=== PATIENT | female | born 2000 | race Hispanic/Latino ===

== ENCOUNTER 2022-04-02 12:59 | Outpatient (CLI) | payer OTHER | END 2022-04-02 13:00 | disposition home or self-care (01) | LOC: CSHLAB 12:59 | PROVIDERS: ATTEND Family Medicine | DX: Z20.822 Contact with and (suspected) exposure to COVID-19 (principal) | CPT/HCPCS: 87811 ==

== ENCOUNTER 2022-04-04 05:35 | Inpatient (IN) | payer OTHER ==
[2022-04-04] MEDS ORDERED: Promethazine HCl 25 MG/ML VIAL IM PRN ×2 (05:58→07:16)
[2022-04-04] MEDS ORDERED: Bicitra 30 ML UDCUP PO PRN (05:58)
[2022-04-04] MEDS ORDERED: Ondansetron PF 4 MG/2 ML Vial IVP PRN ×3 (05:58→11:31)
[2022-04-04] MEDS ORDERED: hydrALAZINE 20 MG/ML VIAL SLOW IVP PRN ×2 (05:58→11:31)
[2022-04-04] MEDS ORDERED: Famotidine/PF 20 mg/2ml Vial SLOW IVP PRN (05:58)
[2022-04-04] MEDS ORDERED: CEFAZOLIN 2 GM in Sodium Chloride 0.9% 100 ML IVPB SCH (06:00)
[2022-04-04] MEDS ORDERED: Lactated Ringer's 1,000 ML IV SCH (06:00)
[2022-04-04] MEDS ORDERED: Fentanyl 2 mcg/Bup 0.1% Cadd 100 ML ONE (06:11)
[2022-04-04 07:06] LABS: Hemoglobin 10.6 g/dL (12.0-15.5); Mean Corpuscular Hemoglobin 29.7 pg (27.0-33.0); Mean Corpuscular Volume 89.9 fl (81.6-98.3); Mean Platelet Volume 11.8 fl (7.4-10.4); Platelet Count 242 10x3/uL (150-450); RBC Distribution Width 13.3 % (11.5-14.5); Red Blood Cell (RBC) Count 3.57 10x6/uL (3.90-5.03); White Blood Cell (WBC) Count 9.2 10x3/uL (3.5-10.5)
[2022-04-04] MEDS ORDERED: Morphine PF 10 MG/10 ML VIAL ONE (07:08)
[2022-04-04] MEDS ORDERED: ePHEDrine Sulfate 50 MG/10 ML VIAL ONE (07:08)
[2022-04-04] MEDS ORDERED: PHENYLEPHRINE-NS 100 MCG/ML 10 ML SYRINGE ONE (07:09)
[2022-04-04] MEDS ORDERED: Ondansetron PF 4 MG/2 ML Vial ONE ×2 (07:09→08:09)
[2022-04-04] MEDS ORDERED: Ketorolac Tromethamine 30 MG/ML VIAL ONE (07:09)
[2022-04-04] MEDS ORDERED: Oxytocin 10 UNITS/ML VIAL ONE (07:09)
[2022-04-04] MEDS ORDERED: Glycopyrrolate 0.2 MG/ML 5 ML SYRINGE ONE (07:09)
[2022-04-04] MEDS ORDERED: Dexamethasone 4 mg/ml Vial ONE (07:09)
[2022-04-04] MEDS ORDERED: Phenylephrine 40 MG/NS 250 ML 250 ML ONE (07:09)
[2022-04-04] MEDS ORDERED: Moisturizing Cream (Eucerin) 113 GM JAR TOP PRN (07:16)
[2022-04-04] MEDS ORDERED: Fentanyl 100 MCG/2 ML VIAL SLOW IVP PRN (07:16)
[2022-04-04] MEDS ORDERED: Naloxone HCl 0.4 mg/ml Vial IVP PRN ×2 (07:16)
[2022-04-04] MEDS ORDERED: Ondansetron HCl/PF 4 MG/2 ML Vial IVP PRN (07:16)
[2022-04-04] MEDS ORDERED: Meperidine HCl/PF 25 MG/ML VIAL SLOW IVP PRN (07:16)
[2022-04-04] MEDS ORDERED: Promethazine HCl 25 MG SUPP PR PRN (07:16)
[2022-04-04] MEDS ORDERED: Naloxone HCl 0.4 mg/ml Vial IV PRN (07:16)
[2022-04-04] MEDS ORDERED: Ketorolac Tromethamine 30 MG/ML VIAL IVP SCH (07:30)
[2022-04-04] MEDS ORDERED: Communication Order-Pharmacy FS SCH (07:30)
[2022-04-04 07:32] LABS: Syphilis Antibody Nonreactive (Nonreactive); Syphilis Antibody Index 0.04 S/CO (<1.00 Non-Reactive)
[2022-04-04 07:34] LABS: Hep B Surf Ag Non-Reactive S/CO (NonReactive)
[2022-04-04 07:36] LABS: HBSAg Index 0.21 S/CO (0-0.99)
[2022-04-04] MEDS ORDERED: Midazolam HCl 2 mg/2 ml Vial ONE (08:21)
[2022-04-04 09:05] VITALS: BMI 53.5
[2022-04-04] MEDS: diphenhydrAMINE 50 MG/ML VIAL IVP PRN ×2 (10:44→21:14)
[2022-04-04] MEDS ORDERED: Meperidine HCl/PF 25 MG/ML VIAL ONE (10:46)
[2022-04-04] MEDS ORDERED: Misoprostol 200 MCG TAB PR PRN (11:31)
[2022-04-04] MEDS ORDERED: Simethicone Chewable 80 MG TAB PO PRN (11:31)
[2022-04-04] MEDS ORDERED: Boostrix 0.5 ML (Tdap) VIAL IM ONE (11:31)
[2022-04-04] MEDS ORDERED: NS w/ Oxytocin 30 units 500 ML IV SCH (11:31)
[2022-04-04] MEDS ORDERED: Lanolin Ointment 7 GM TUBE TOP PRN (11:31)
[2022-04-04] MEDS ORDERED: diphenhydrAMINE 25 MG CAP PO PRN (11:31)
[2022-04-04] MEDS: Ketorolac Tromethamine 30 MG/ML VIAL IVP PRN (16:19)
[2022-04-04] MEDS: Ferrous Sulfate 325 MG TAB PO SCH (21:13)
[2022-04-04] MEDS: Docusate 100 MG CAP PO SCH (21:13)
[2022-04-05] MEDS: Ketorolac Tromethamine 30 MG/ML VIAL IVP PRN ×2 (00:10→06:06)
[2022-04-05 05:48] LABS: Hemoglobin 8.1 g/dL (12.0-15.5); Mean Corpuscular HGB CONC 33.3 g/dL (32.0-36.0); Mean Corpuscular Hemoglobin 29.6 pg (27.0-33.0); Mean Corpuscular Volume 88.7 fl (81.6-98.3); Mean Platelet Volume 11.8 fl (7.4-10.4); Platelet Count 193 10x3/uL (150-450); RBC Distribution Width 13.5 % (11.5-14.5); Red Blood Cell (RBC) Count 2.74 10x6/uL (3.90-5.03); White Blood Cell (WBC) Count 9.2 10x3/uL (3.5-10.5)
[2022-04-05] MEDS: Ferrous Sulfate 325 MG TAB PO SCH ×2 (08:33→21:12)
[2022-04-05] MEDS: Prenatal Vitamin 1 TAB PO SCH (08:33)
[2022-04-05] MEDS: Docusate 100 MG CAP PO SCH ×2 (08:33→21:12)
[2022-04-05] MEDS: HYDROcodone/Acetaminophen 5/325 mg Tablet PO PRN ×2 (08:34→16:50)
[2022-04-05] MEDS: Ibuprofen 800 MG TAB PO SCH ×2 (12:11→21:12)
[2022-04-06] MEDS: HYDROcodone/Acetaminophen 5/325 mg Tablet PO PRN ×2 (04:34→11:50)
[2022-04-06] MEDS: Ibuprofen 800 MG TAB PO SCH ×2 (06:09→14:49)
[2022-04-06 07:42] VITALS: BP 117/68; TEMP 98.9
[2022-04-06] MEDS: Docusate 100 MG CAP PO SCH (07:58)
[2022-04-06] MEDS: Ferrous Sulfate 325 MG TAB PO SCH (07:58)
[2022-04-06] MEDS: Prenatal Vitamin 1 TAB PO SCH (07:58)
== END 2022-04-06 15:25 | disposition home or self-care (01) | DRG 787 ==
LOC: CSHLD 05:35 → CSHPED 11:15
PROVIDERS: ADMIT Family Medicine; ATTEND Family Medicine
PROC: 10D00Z1 Extraction of Products of Conception, Low, Open Approach (ICD-10-PCS; principal; 2022-04-04)
DX: O34.211 Maternal care for low transverse scar from previous cesarean delivery (principal); O10.92 Unspecified pre-existing hypertension complicating childbirth; Z20.822 Contact with and (suspected) exposure to COVID-19; Z3A.38 38 weeks gestation of pregnancy; Z37.0 Single live birth; D64.9 Anemia, unspecified; O99.02 Anemia complicating childbirth; O24.429 Gestational diabetes mellitus in childbirth, unspecified control; Z91.19 Patient's noncompliance with other medical treatment and regimen; Z79.899 Other long term (current) drug therapy
CPT/HCPCS: 36415; 36416; 51702; 83036; 85027; 86780; 86850; 86900; 86901; 87340; J0690; J1100; J1200; J1885; J2175; J2250; J2274; J2405; J2590; J3490; S0028

== ENCOUNTER 2022-12-22 16:41 | Emergency (ER) | payer OTHER ==
[2022-12-22 17:37] LABS: Bilirubin Neg (Negative); Blood, Urine Negative (Negative); Clarity Cloudy (Clear); Glucose, Urine (Dipstick) Normal (Negative); Ketone, Urine Negative (Negative); Leukocyte 25 (Negative); Nitrite Negative (Negative); Protein, Urine (Dipstick) Negative (Neg-Trace); Specific Gravity, Urine 1.015 (1.005-1.030); Urobilinogen Normal mg/dL (Less than 2)
[2022-12-22 17:47] LABS: #Eosinphils 0.2 10x3/uL (0.0-0.5); #Monocytes 0.7 10x3/uL (0.0-1.1); #Neutrophils 7.7 10x3/uL (1.5-8.4); %Basophils 0.3 % (0.0-2.0); %Eosinophils 1.5 % (0.0-6.0); %Lymphocytes 18.6 % (18.0-47.0); %Monocytes 6.6 % (0.0-10.0); %Neutrophils 72.6 % (40.0-75.0); Hemoglobin 11.9 g/dL (12.0-15.5); Mean Corpuscular HGB CONC 33.7 g/dL (32.0-36.0); Mean Corpuscular Hemoglobin 31.6 pg (27.0-33.0); Mean Corpuscular Volume 93.6 fl (81.6-98.3); Mean Platelet Volume 11.7 fl (7.4-10.4); Platelet Count 242 10x3/uL (150-450); RBC Distribution Width 13.1 % (11.5-14.5); Red Blood Cell (RBC) Count 3.77 10x6/uL (3.90-5.03); White Blood Cell (WBC) Count 10.6 10x3/uL (3.5-10.5)
[2022-12-22 18:00] LABS: ALT (SGPT) 9 U/L (8-55); AST (SGOT) 13 U/L (5-34); Albumin 3.6 g/dL (3.5-5.0); Alkaline Phosphatase 56 U/L (40-110); Anion Gap 14 mmol/L (10-20); BUN (Urea Nitrogen) 4 mg/dL (7.0-18.7); Bilirubin, Total 0.1 mg/dL (0.2-1.2); Calc. Creatinine Clearance 0 mL/min (70-130); Carbon Dioxide 19 mmol/L (22-29); Chloride 108 mmol/L (98-107); Estimated GFR 130; Globulin 3.6 g/dL (2.4-3.5); Glucose 99 mg/dL (70-105); Potassium 3.5 mmol/L (3.5-5.1); Protein, Total 7.2 g/dL (6.0-8.3); Sodium 137 mmol/L (136-145)
[2022-12-22 18:04] LABS: Bacteria/HPF 2+ HPF (None Seen); RBC/HPF None Seen HPF (0-3); WBC/HPF 0-3 HPF (0-3)
== END 2022-12-22 19:31 | disposition home or self-care (01) ==
LOC: CSHERS 16:41
DX: O99.891 Other specified diseases and conditions complicating pregnancy (principal); R10.32 Left lower quadrant pain; O21.9 Vomiting of pregnancy, unspecified; Z3A.18 18 weeks gestation of pregnancy
CPT/HCPCS: 76815; 80053; 81003; 81015; 84702; 85025

== ENCOUNTER 2023-04-14 12:03 | Day surgery (SDC) | payer OTHER ==
[2023-04-14] MEDS ORDERED: hydrALAZINE 20 MG/ML VIAL SLOW IVP PRN (13:08)
[2023-04-14 13:12] VITALS: BMI 36.9
[2023-04-14] MEDS ORDERED: Acetaminophen 325 MG TAB PO SCH (13:45)
[2023-04-14 14:33] LABS: #Monocytes 0.6 10x3/uL (0.0-1.1); %Basophils 0.4 % (0.0-2.0); %Eosinophils 0.5 % (0.0-6.0); %Lymphocytes 21.2 % (18.0-47.0); %Monocytes 7.4 % (0.0-10.0); %Neutrophils 70.1 % (40.0-75.0); Hemoglobin 10.8 g/dL (12.0-15.5); Mean Corpuscular Hemoglobin 29.4 pg (27.0-33.0); Mean Corpuscular Volume 89.1 fl (81.6-98.3); Platelet Count 244 10x3/uL (150-450); RBC Distribution Width 12.3 % (11.5-14.5); Red Blood Cell (RBC) Count 3.67 10x6/uL (3.90-5.03); White Blood Cell (WBC) Count 8.6 10x3/uL (3.5-10.5)
[2023-04-14 14:48] LABS: Amphetamine Not Detected (NotDetected); Barbiturates Screen Not Detected (NotDetected); Benzodiazepine Screen Not Detected (NotDetected); Cocaine Metabolite Screen Not Detected (NotDetected); Methadone Not Detected (NotDetected); Methamphetamine Not Detected (NotDetected); Opiate Screen Not Detected (NotDetected); Oxycodone Screen Not Detected (NotDetected); Phencyclidine (PCP) Not Detected (NotDetected); THC/Cannabinoid Screen Not Detected (NotDetected); Tricyclic Screen Not Detected (NotDetected)
[2023-04-14 14:49] LABS: ALT (SGPT) 15 U/L (8-55); AST (SGOT) 18 U/L (5-34); Albumin 3.2 g/dL (3.5-5.0); Alkaline Phosphatase 177 U/L (40-110); Anion Gap 14 mmol/L (10-20); BUN (Urea Nitrogen) 4 mg/dL (7.0-18.7); Bilirubin, Total 0.3 mg/dL (0.2-1.2); Calc. Creatinine Clearance 207 mL/min (70-130); Calcium 8.8 mg/dL (7.8-10.44); Carbon Dioxide 18 mmol/L (22-29); Chloride 108 mmol/L (98-107); Estimated GFR 131; Globulin 3.5 g/dL (2.4-3.5); Glucose 83 mg/dL (70-105); Potassium 3.5 mmol/L (3.5-5.1); Protein, Total 6.7 g/dL (6.0-8.3); Sodium 136 mmol/L (136-145)
[2023-04-14 15:01] LABS: Creatinine, Urine 195.48 mg/dL (47-110)
[2023-04-14 20:45] LABS: Hemoglobin A1c 5.7 % (4.0-6.0)
[2023-04-14 21:39] LABS: Uric Acid 6.2 mg/dL (2.6-6.0)
[2023-04-15 19:59] LABS: Group B Streptococcus by PCR Not Detected (NotDetected)
== END 2023-04-14 18:15 | disposition home or self-care (01) ==
LOC: CSHLD/OP 12:03
PROVIDERS: ATTEND Obstetrics & Gynecology
DX: O99.891 Other specified diseases and conditions complicating pregnancy (principal); R51.9 Headache, unspecified; H52.532 Spasm of accommodation, left eye; O13.4 Gestational [pregnancy-induced] hypertension without significant proteinuria, complicating childbirth; O99.213 Obesity complicating pregnancy, third trimester; E66.9 Obesity, unspecified; O24.410 Gestational diabetes mellitus in pregnancy, diet controlled; O98.819 Other maternal infectious and parasitic diseases complicating pregnancy, unspecified trimester; B95.1 Streptococcus, group B, as the cause of diseases classified elsewhere; Z3A.35 35 weeks gestation of pregnancy; Z79.899 Other long term (current) drug therapy
CPT/HCPCS: 76815; 80053; 80306; 82570; 83036; 84156; 84443; 84550; 85025; 87653; 99284

== ENCOUNTER 2023-04-23 06:28 | Inpatient (IN) | payer OTHER ==
[2023-04-23] MEDS ORDERED: Tranexamic Acid 1,000 MG/10 ML VIAL IVP PRN (06:44)
[2023-04-23] MEDS ORDERED: hydrALAZINE 20 MG/ML VIAL SLOW IVP PRN ×2 (06:44→12:08)
[2023-04-23] MEDS ORDERED: Acetaminophen 500 MG TAB PO PRN (06:44)
[2023-04-23] MEDS ORDERED: Misoprostol 200 MCG TAB PR PRN (06:44)
[2023-04-23] MEDS ORDERED: Ondansetron PF 4 MG/2 ML Vial IVP PRN ×2 (06:44→07:44)
[2023-04-23] MEDS ORDERED: Famotidine/PF 20 mg/2ml Vial SLOW IVP PRN (06:44)
[2023-04-23] MEDS ORDERED: Docusate 100 MG CAP PO PRN (06:44)
[2023-04-23] MEDS ORDERED: Promethazine HCl 25 MG/ML VIAL IM PRN ×2 (06:44→07:44)
[2023-04-23] MEDS ORDERED: Bicitra 30 ML UDCUP PO PRN (06:44)
[2023-04-23] MEDS ORDERED: Carboprost 250 MCG/ML AMP IM PRN (06:44)
[2023-04-23] MEDS ORDERED: Diphenoxylate HCl/Atropine Tablet PO PRN (06:44)
[2023-04-23] MEDS ORDERED: Lactated Ringer's 1,000 ML IV SCH (06:45)
[2023-04-23] MEDS ORDERED: NS w/ Oxytocin 30 units 500 ML IV SCH (06:45)
[2023-04-23] MEDS ORDERED: CEFAZOLIN 2 GM in Sodium Chloride 0.9% 100 ML IVPB SCH (06:45)
[2023-04-23] MEDS ORDERED: PHENYLEPHRINE-NS 100 MCG/ML 10 ML SYRINGE ONE (07:11)
[2023-04-23] MEDS ORDERED: Oxytocin 10 UNITS/ML VIAL ONE (07:11)
[2023-04-23] MEDS ORDERED: Morphine PF 10 MG/10 ML VIAL ONE (07:11)
[2023-04-23] MEDS ORDERED: Ondansetron PF 4 MG/2 ML Vial ONE (07:12)
[2023-04-23 07:26] LABS: Mean Corpuscular HGB CONC 33.6 g/dL (32.0-36.0); Mean Corpuscular Hemoglobin 29.6 pg (27.0-33.0); Mean Corpuscular Volume 87.9 fl (81.6-98.3); Mean Platelet Volume 12.1 fl (7.4-10.4); Platelet Count 239 10x3/uL (150-450); RBC Distribution Width 12.5 % (11.5-14.5); Red Blood Cell (RBC) Count 3.72 10x6/uL (3.90-5.03); White Blood Cell (WBC) Count 9.3 10x3/uL (3.5-10.5)
[2023-04-23] MEDS ORDERED: diphenhydrAMINE 50 MG/ML VIAL IVP PRN (07:44)
[2023-04-23] MEDS ORDERED: Fentanyl 100 MCG/2 ML VIAL SLOW IVP PRN (07:44)
[2023-04-23] MEDS ORDERED: Naloxone HCl 0.4 mg/ml Vial IV PRN (07:44)
[2023-04-23] MEDS ORDERED: Meperidine HCl/PF 25 MG/ML VIAL SLOW IVP PRN (07:44)
[2023-04-23] MEDS ORDERED: Ondansetron HCl/PF 4 MG/2 ML Vial IVP PRN (07:44)
[2023-04-23] MEDS ORDERED: Naloxone HCl 0.4 mg/ml Vial IVP PRN ×2 (07:44)
[2023-04-23] MEDS ORDERED: Moisturizing Cream (Eucerin) 113 GM JAR TOP PRN (07:44)
[2023-04-23] MEDS ORDERED: Promethazine HCl 25 MG SUPP PR PRN (07:44)
[2023-04-23] MEDS ORDERED: Ketorolac Tromethamine 30 MG/ML VIAL IVP SCH (07:45)
[2023-04-23] MEDS ORDERED: Communication Order-Pharmacy FS SCH (07:45)
[2023-04-23 08:01] LABS: Syphilis Antibody Nonreactive (Nonreactive); Syphilis Antibody Index 0.05 S/CO (<1.00 Non-Reactive)
[2023-04-23 08:02] LABS: HBSAg Index 0.17 S/CO (0-0.99); Hep B Surf Ag - L&D Non-Reactive S/CO (NonReactive)
[2023-04-23] MEDS ORDERED: fentaNYL 50 mcg/mL 1 mL Vial ONE (08:49)
[2023-04-23] MEDS ORDERED: Midazolam HCl 2 mg/2 ml Vial ONE (08:49)
[2023-04-23] MEDS ORDERED: PROPOFOL 20 ML ONE (09:12)
[2023-04-23] MEDS: Ketorolac Tromethamine 30 MG/ML VIAL IVP PRN ×2 (10:00→16:32)
[2023-04-23] MEDS ORDERED: Meperidine HCl/PF 25 MG/ML VIAL ONE (10:07)
[2023-04-23 10:48] VITALS: BMI 32.3
[2023-04-23] MEDS ORDERED: Boostrix 0.5 ML (Tdap) VIAL (>/=7 yrs of age) IM ONE (12:08)
[2023-04-23] MEDS ORDERED: Bisacodyl 10 MG SUPP PR PRN ×2 (12:08→12:17)
[2023-04-23] MEDS ORDERED: Simethicone Chewable 80 MG TAB PO PRN (12:08)
[2023-04-23] MEDS ORDERED: Ferrous Sulfate 325 MG TAB PO SCH (12:30)
[2023-04-23] MEDS ORDERED: Prenatal Vitamin 1 TAB PO SCH (12:30)
[2023-04-23] MEDS: Ferrous Sulfate 325 MG TAB PO SCH (22:10)
[2023-04-24] MEDS: Ketorolac Tromethamine 30 MG/ML VIAL IVP PRN (01:21)
[2023-04-24 04:35] LABS: Hemoglobin 9.4 g/dL (12.0-15.5); Mean Corpuscular HGB CONC 32.6 g/dL (32.0-36.0); Mean Corpuscular Hemoglobin 29.3 pg (27.0-33.0); Mean Corpuscular Volume 89.7 fl (81.6-98.3); Mean Platelet Volume 12.1 fl (7.4-10.4); Platelet Count 196 10x3/uL (150-450); RBC Distribution Width 12.7 % (11.5-14.5); Red Blood Cell (RBC) Count 3.21 10x6/uL (3.90-5.03); White Blood Cell (WBC) Count 8.8 10x3/uL (3.5-10.5)
[2023-04-24] MEDS: Prenatal Vitamin 1 TAB PO SCH (08:48)
[2023-04-24] MEDS: Ferrous Sulfate 325 MG TAB PO SCH ×2 (08:48→21:53)
[2023-04-24] MEDS: HYDROcodone/Acetaminophen 5/325 mg Tablet PO PRN ×4 (08:51→22:40)
[2023-04-24] MEDS ORDERED: Ibuprofen 800 MG TAB PO SCH ×2 (12:15→20:00)
[2023-04-24] MEDS ORDERED: hydrALAZINE 20 MG/ML VIAL SLOW IVP PRN (20:11)
[2023-04-24] MEDS: Ibuprofen 800 MG TAB PO SCH (21:52)
[2023-04-24 22:37] LABS: #Eosinphils 0.3 10x3/uL (0.0-0.5); #Monocytes 0.6 10x3/uL (0.0-1.1); #Neutrophils 4.7 10x3/uL (1.5-8.4); %Basophils 0.1 % (0.0-2.0); %Eosinophils 3.4 % (0.0-6.0); %Monocytes 8.3 % (0.0-10.0); %Neutrophils 60.9 % (40.0-75.0); Hemoglobin 9.3 g/dL (12.0-15.5); Mean Corpuscular HGB CONC 32.7 g/dL (32.0-36.0); Mean Corpuscular Hemoglobin 29.4 pg (27.0-33.0); Mean Corpuscular Volume 89.9 fl (81.6-98.3); Mean Platelet Volume 11.4 fl (7.4-10.4); Platelet Count 227 10x3/uL (150-450); RBC Distribution Width 12.7 % (11.5-14.5); Red Blood Cell (RBC) Count 3.16 10x6/uL (3.90-5.03); White Blood Cell (WBC) Count 7.7 10x3/uL (3.5-10.5)
[2023-04-24 22:51] LABS: ALT (SGPT) 12 U/L (8-55); AST (SGOT) 19 U/L (5-34); Albumin 2.8 g/dL (3.5-5.0); Alkaline Phosphatase 150 U/L (40-110); Anion Gap 13 mmol/L (10-20); BUN (Urea Nitrogen) 6 mg/dL (7.0-18.7); Bilirubin, Total Less than 0.2 mg/dL (0.2-1.2); Calc. Creatinine Clearance 158 mL/min (70-130); Calcium 8.4 mg/dL (7.8-10.44); Carbon Dioxide 23 mmol/L (22-29); Chloride 106 mmol/L (98-107); Estimated GFR 127; Globulin 3.2 g/dL (2.4-3.5); Glucose 84 mg/dL (70-105); Potassium 3.5 mmol/L (3.5-5.1); Sodium 138 mmol/L (136-145)
[2023-04-25] MEDS: HYDROcodone/Acetaminophen 5/325 mg Tablet PO PRN ×3 (05:35→13:30)
[2023-04-25] MEDS: Ibuprofen 800 MG TAB PO SCH ×2 (05:35→13:30)
[2023-04-25] MEDS ORDERED: Polyethylene Glycol 3350 17 GM Packet PO SCH (08:15)
[2023-04-25] MEDS: Prenatal Vitamin 1 TAB PO SCH (08:26)
[2023-04-25] MEDS: Ferrous Sulfate 325 MG TAB PO SCH (08:26)
[2023-04-25] MEDS ORDERED: Senokot S 8.6-50 MG TAB PO SCH (09:00)
[2023-04-25] MEDS ORDERED: NIFEdipine XL 30 MG TAB PO SCH (10:00)
[2023-04-25 10:20] LABS: Creatinine, Urine 89.17 mg/dL (47-110)
[2023-04-25 11:50] VITALS: BP 142/91; TEMP 98.5
[2023-04-26] MEDS ORDERED: NIFEdipine XL 30 MG TAB PO SCH (09:00)
== END 2023-04-25 17:25 | disposition home or self-care (01) | DRG 788 ==
LOC: CSHLD 06:28 → EEVIPCON 06:28 → CSHPP 11:35
PROVIDERS: ADMIT Student in an Organized Health Care Education/Training Program; ATTEND Student in an Organized Health Care Education/Training Program
PROC: 10D00Z1 Extraction of Products of Conception, Low, Open Approach (ICD-10-PCS; principal; 2023-04-23)
PROC: 3E0P7VZ Introduction of Hormone into Female Reproductive, Via Natural or Artificial Opening (ICD-10-PCS; 2023-04-23)
PROC: 3E033VJ Introduction of Other Hormone into Peripheral Vein, Percutaneous Approach (ICD-10-PCS; 2023-04-23)
DX: O24.425 Gestational diabetes mellitus in childbirth, controlled by oral hypoglycemic drugs (principal); O34.211 Maternal care for low transverse scar from previous cesarean delivery; O13.4 Gestational [pregnancy-induced] hypertension without significant proteinuria, complicating childbirth; O99.214 Obesity complicating childbirth; Z3A.37 37 weeks gestation of pregnancy; Z37.0 Single live birth; Z79.899 Other long term (current) drug therapy
CPT/HCPCS: 36415; 36416; 51702; 80053; 82570; 84156; 85027; 86780; 86850; 86900; 86901; 87340; J1200; J1885; J2175; J2250; J2274; J2405; J2590; J2704; J3010